=== PATIENT | female | born 1995 | race Caucasian/White ===

== ENCOUNTER 2018-02-18 20:05 | Outpatient (CLI) | payer BC, OTHER, SELFPAY ==
[2018-02-18 20:49] LABS: Bacteria 0 SEEN /hpf (None Seen); Mucous, Urine 0 SEEN /hpf (<or=2+); Red Blood Cells-Urine 0 SEEN /hpf (0-5)
[2018-02-18 21:00] VITALS: BMI 28.8
[2018-02-18 21:10] LABS: ROM Internal Control Test YES-OK TO RESULT pt. (Internal QC); ROM Patient Test Negative (Negative)
[2018-02-18 21:19] LABS: Color, Urine Yellow (Yellow); Glucose, Dipstick Normal (Normal); Ketone-Dipstick Negative (Negative); Leukocyte Esterase-Dipstick 25 /ul (Negative); Nitrite-Dipstick Negative (Negative); Occult Blood-Urine Negative /ul (Negative); Protein-Dipstick Negative (Negative); Urine Bilirubin Dipstick Negative (Negative); Urine Clarity Clear (Clear); Urine Urobilinogen Normal (Normal)
[2018-02-18 21:27] LABS: White Blood Cells 0-5 SEEN /hpf (0-5)
[2018-02-18 21:28] LABS: Squamous Epithelial Cells - UA 5-10 SEEN /hpf (5-10)
--- NOTE | 2018-02-19 04:40 | OB.TRI.HP_ITS ---
History of Present Illness Date of Service: 02/18/18 Was patient seen by the physician?: No Reason For Visit: RULE OUT LABOR Date of Service: 02/18/18 Final ANNETTA: 04/29/18 Final ANNETTA Source: US <20 weeks Gestational age: 30 Weeks and 1 Days History of Present Illness: 23yo @ 30.1 wks c/o contractions and ? LOF Allergies No Known Allergies Allergy (Verified 02/18/18 21:03) Laboratory Studies: Laboratory Tests 02/18/18 02/18/18 Range/Units 20:30 20:30 Urine Color Yellow (Yellow) Urine Clarity Clear (Clear) Urine pH 7.0 (5.0 - 8.0) Ur Specific [place] 1.010 (1.002-1.030) Urine Protein Negative (Negative) mg/dl Urine Glucose (UA) Normal (Normal) mg/dl Urine Ketones Negative (Negative) mg/dl Urine Occult Blood Negative (Negative) /ul Urine Nitrite Negative (Negative) Urine Bilirubin Negative (Negative) mg/dL Urine Urobilinogen Normal (Normal) mg/dl Ur Leukocyte Esterase 25 H (Negative) /ul Urine RBC 0 SEEN (0-5) /hpf Urine WBC 0-5 SEEN (0-5) /hpf Ur Squamous Epith Cells 5-10 SEEN (5-10) /hpf Urine Bacteria 0 SEEN (None Seen) /hpf Urine Mucus 0 SEEN (<or=2+) /hpf Vag Amniotic Fld Detect Negative (Negative) Physical Exam Presentation: Cephalic Cervix Dilation (cm): 0 Station: -3 Effacement (%): 0 NST - FHR Rate Baby A Baseline: 135 Variability:: Moderate Accelerations:: 15 x 15 Decelerations:: None NST Reactive:: Yes FHR Category:: Category I Uterine Activity:: no ctx Impression/Plan @ 30.1 wks, false labor 1) ROM plus- negative 2) UA neg 3) DC HOME
== END 2018-02-18 22:00 | disposition home or self-care (01) ==
LOC: WPOUT 20:32 → WP 21:05
PROVIDERS: Family Provider Obstetrics & Gynecology; Visit Provider Obstetrics & Gynecology
DX: O60.03 Preterm labor without delivery, third trimester (principal); Z3A.30 30 weeks gestation of pregnancy
CPT/HCPCS: 59025; 59050; 81001; 84112; 99218; G0378

== ENCOUNTER 2018-03-20 23:12 | Outpatient (CLI) | payer OTHER, SELFPAY ==
[2018-03-20 23:47] VITALS: BMI 29.5
[2018-03-21 00:28] LABS: ROM Internal Control Test YES-OK TO RESULT pt. (Internal QC); ROM Patient Test Negative (Negative); Record Kit Lot#, ROM+ J7836
[2018-03-21 00:55] VITALS: RESP 18
--- NOTE | 2018-03-24 10:17 | OB.TRI.PN_ITS ---
Progress Notes Date of Service: 03/20/18 Progress Note: Presented to L&D at 34w3d for rule out ROM. Patient at home and felt large gush of fluid. Denies any contractions, vaginal bleeding, or other concerns. O:140 moderate variability, accels, no decels, Category 1 FHT TOCO: Uterine irritability ROM Plus negative A: False Labor P: 1) labor precautions given 2) Membranes intact, D/C home. notified. Laboratory Studies: Laboratory Tests 3 03/21/18 Range/Units 00:00 Vag Amniotic Fld Detect Negative (Negative)
== END 2018-03-21 00:55 | disposition home or self-care (01) ==
LOC: WPOUT 23:37 → WP 23:37
PROVIDERS: Family Provider Obstetrics & Gynecology; Visit Provider Obstetrics & Gynecology
DX: O47.03 False labor before 37 completed weeks of gestation, third trimester (principal); Z3A.34 34 weeks gestation of pregnancy
CPT/HCPCS: 59025; 59050; 84112; 99218; G0378

== ENCOUNTER 2018-03-23 21:21 | Outpatient (CLI) | payer OTHER, BC, SELFPAY ==
[2018-03-23 21:40] VITALS: BMI 29.8
[2018-03-23 22:01] LABS: ROM Internal Control Test YES-OK TO RESULT pt. (Internal QC); Record Kit Lot#, ROM+ J7836
[2018-03-23 22:32] LABS: ROM Patient Test Negative (Negative)
--- NOTE | 2018-03-24 07:23 | OB.TRI.NOTE ---
- Problem List (1) Vaginal discharge during Status: Acute (2) Uterine contractions during Status: Acute (3) Decreased movement Status: Acute History of Present Illness Date of Service: 03/23/18 Was patient seen by the physician?: No Reason For Visit: R/O Date of Service: 03/23/18 Final ANNETTA: 04/29/18 Final ANNETTA Source: US <20 weeks Gestational age: 34 Weeks and 6 Days History of Present Illness: Patient called in stating she was leaking fluid, having ctx's q 4 min, and having DFM. No VB. Allergies No Known Allergies Allergy (Verified 03/23/18 22:11) Laboratory Studies: Laboratory Tests 03/23/18 Range/Units 21:40 Vag Amniotic Fld Detect Negative (Negative) NST - FHR Rate Baby A NST Reactive:: Yes FHR Category:: Category I Impression/Plan - Cvx c/t/h per RN and no regular ctx's on toco - Not ruptured - NST reactive and reassuring - D/c home
== END 2018-03-23 22:40 | disposition home or self-care (01) ==
LOC: WPOUT 21:50 → WP 21:51
PROVIDERS: Referring Provider Obstetrics & Gynecology; Visit Provider Obstetrics & Gynecology
DX: Z03.71 Encounter for suspected problem with amniotic cavity and membrane ruled out (principal); O36.8130 Decreased fetal movements, third trimester, not applicable or unspecified; O62.9 Abnormality of forces of labor, unspecified; Z3A.34 34 weeks gestation of pregnancy
CPT/HCPCS: 59025; 59050; 84112; 99218; G0378

== ENCOUNTER 2018-04-02 23:30 | Outpatient (CLI) | payer OTHER, BC, SELFPAY ==
[2018-04-02 23:57] VITALS: BMI 30.5
[2018-04-03 00:32] LABS: ROM Internal Control Test YES-OK TO RESULT pt. (Internal QC); ROM Patient Test Negative (Negative); Record Kit Lot#, ROM+ J7836
--- NOTE | 2018-04-03 01:07 | OB.TRI.NOTE ---
- Problem List (1) History of depression Status: Acute (2) Headache Status: Acute (3) Blurred vision Status: Acute (4) Nausea Status: Acute (5) Diarrhea Status: Acute (6) Vaginal discharge during Status: Acute (7) Uterine contractions during Status: Acute (8) Decreased movement Status: Acute History of Present Illness Date of Service: 04/03/18 Was patient seen by the physician?: Yes Reason For Visit: R/O LABOR Date of Service: 04/03/18 Final ANNETTA: 04/29/18 Final ANNETTA Source: US <20 weeks Gestational age: 36 Weeks and 2 Days History of Present Illness: Patient is a 23-year-old at 36 weeks gestational age who presents to triage with multiple complaints. She called overnight complaining of new onset diarrhea. She now states she is having a headache, blurred vision, leaking of fluid, contractions, decreased movement, swelling, nausea, occasionally cannot catch her breath. She states all the symptoms started at the same time last night. Her headache is frontal and throbbing and feels like a migraine for her. Her vision is blurred and she also describes spots of light in her vision. She also notes nausea and diarrhea. He denies shortness of breath but says at random times she feels she cannot catch her breath, and she notes a history of asthma but denies any wheezing or coughing. She states she is not having chest pain currently but she did have an episode of pressure that resolved. She feels she has been wet but has had no large gush or leaking of fluid. She states she has been feeling contractions that are mild and not painful for her. She has had decreased movement today. Allergies No Known Allergies Allergy (Verified 04/02/18 23:59) Laboratory Studies: Laboratory Tests 04/02/18 Range/Units 23:30 Vag Amniotic Fld Detect Negative (Negative) Review of Systems Eyes: Reports: Blurred vision HEENT: Reports: Head Aches Cardiovascular: Reports: Chest Pressure - Now resolved Respiratory: Denies: Cough, Shortness of Breath, Wheezing Gastrointestinal: Reports: Diarrhea, Nausea. Denies: Abdominal Pain, Vomiting Gynecological: Reports: Vaginal discharge, - - +Ctx's. DFM Physical Exam General: Alert, No apparent distress, - - Patient is well appearing Cardiovascular: Regular rate, Tachycardic Lungs: Normal air movement, - - No increased resp effort Abdomen: Soft, Non Tender, Gravid Extremities:: No edema Neurological: Deep Tendon Reflexes 2+/4 and Symmetrical, Neuro grossly intact Cervix Dilation (cm): 1 - per RN NST - FHR Rate Baby A NST Reactive:: Yes FHR Category:: Category I Impression/Plan at 36 wks presenting to triage with diarrhea, nausea, BROWNING, vision changes, DFM, LOF, ctx's. - Diarrhea and nausea: No emesis. Tolerating PO. Encouraged hydration and bland foods. Tachycardia likely secondary to dehydration given diarrhea overnight - R/o pre-e: Will give Tylenol 1000mg for BROWNING. BP normal. Will send pre-e labs and p/c ratio. No upper abdominal tenderness. Normal reflexes - DFM: NST reactive and reassuring - LOF: Not ruptured - Ctx's: Cvx 1/t/h per RN, will recheck once labs return - Tachycardia: Saturating at 100% on RA. Likely from dehydration but patient states she had a chest pressure that is now resolved. Will get EKG - If labs and EKG wnl, ok for d/c home with f/u in the office
[2018-04-03] MEDS: Acetaminophen 500 MG Tablet 1000 MG PO (01:12)
--- NOTE | 2018-04-03 01:20 | EKG12_ITS ---
Test Reason : SOB Blood Pressure : / mmHG Vent. Rate : 117 BPM Atrial Rate : 117 BPM P-R Int : 134 ms QRS Dur : 072 ms QT Int : 308 ms P-R-T Axes : 025 048 009 degrees QTc Int : 429 ms Sinus tachycardia Otherwise normal ECG No previous ECGs available Confirmed by MARIA FERNANDA DOUGLAS, MARLEN ([id number]), primer expeditor and drier MARTHA SEGAL ([id number]) on 04/07/2018 5:26:30 PM Referred By: Florence Christian Confirmed By:MARLEN IRVING MD
[2018-04-03 01:29] LABS: Hematocrit 30.6 % (37-47); Hemoglobin 10.2 g/dl (12.0-15.0); Mean Corp Hgb Conc 33.3 g/gl (32-36); Mean Corpuscular Hgb 28.4 pg (27.0-32.0); Mean Corpuscular Volume 85.2 fL (81-99); Mean Platelet Vol. 9.4 fl (6.2-12.0); Platelet Count 175 K/mm3 (150-450); RBC Distribution Width CV 13.6 % (11.6-14.6); RBC Distribution Width SD 42.6 fl (35.1-43.9); Red Blood Count 3.59 M/mm3 (4.2-5.4); Scan Indicated on CBC? Y/N NO
[2018-04-03 01:36] LABS: Partial Thromboplast Time 29.3 Seconds (24.1-36.2); Prothrombin Time (Protime)PT. 13.1 SECONDS (11.7-14.9)
[2018-04-03 01:43] LABS: AST(SGOT) 15 U/L (15-37); Alanine Aminotransfer ALT/SGPT 12 U/L (13-56); EST Glomerular Filtration Rate 162 mL/min (>60); Est Glom Filt Rate - Afr Amer 196 mL/min (>60); Estimated Creatinine Clearance 139.58 ml/min; Uric Acid 4.5 mg/dL (2.6-6.0)
[2018-04-03 01:46] LABS: Protein, Urine (Random) < 6.0 mg/dL (<11.9)
== END 2018-04-03 02:00 | disposition home or self-care (01) ==
LOC: WPOUT 23:55 → OBT 23:56
PROVIDERS: Referring Provider Obstetrics & Gynecology; Visit Provider Obstetrics & Gynecology
DX: O26.893 Other specified pregnancy related conditions, third trimester (principal); R19.7 Diarrhea, unspecified; R11.0 Nausea; R51 Headache; H53.9 Unspecified visual disturbance; E86.0 Dehydration; O99.513 Diseases of the respiratory system complicating pregnancy, third trimester; J45.909 Unspecified asthma, uncomplicated; Z3A.36 36 weeks gestation of pregnancy
CPT/HCPCS: 36415; 59025; 59050; 82565; 82570; 84112; 84156; 84450; 84460; 84550; 85027; 85610; 85730; 93005; 99218; G0378

== ENCOUNTER 2018-04-22 16:00 | Inpatient (IN) | payer OTHER, BC, SELFPAY ==
[2018-04-22] MEDS: 0.9% Saline Lock 10 ML Syringe IV (16:20)
[2018-04-22] MEDS: 0.9% Normal Saline 100 ML IV.SOLN. INTRA-UTER (16:35)
--- NOTE | 2018-04-22 16:45 | PCM.HP.OB ---
- Problem List (1) Cholestasis during in third trimester Status: Acute History Date of Admission: 04/22/18 Final ANNETTA: 04/29/18 Final ANNETTA Source: US <20 weeks Gestational age: 39 Weeks and 0 Days History of this : This is a 23 year-old, G [], P [], at weeks gestational age.2P1 @ 39 wks here for IOL due to cholestasis of . pt is currently taking ursodiol to control symptoms. Allergies No Known Allergies Allergy (Verified 04/02/18 23:59) Home Medications: Home Medications Albuterol Inhaler 1 - 2 puff INHALATION Q4H PRN PRN 02/18/18 Ferrous Sulfate 325 mg PO BID 02/18/18 Flovent Hfa 1 puff INHALATION BID PRN 02/18/18 Prenatabs FA 1 tab PO DAILY PRN 02/18/18 Ursodiol [Actigall] 300 mg PO TID 03/20/18 Hydroxyzine Pamoate [Vistaril] 25 mg PO 4X/DAY PRN PRN 04/03/18 Smoking Status: Never smoker Alcohol: None Number of Fetus(es): 1 Heart Tracin mod derian, +accels, no decels - reactive category 1 TOCO Analysis: irregular History Past Pregnancies: Past Pregnancies Delivery Date Name GA/Weeks Outcome Route Weight Gender Labor Length Anesthesia Delivery Location Provider FOB Labs: GBS neg, A+, syphilis NR, HEP B neg, HIV NR, RUB imm, GC/chlamydia neg Expected Infant Delivery Method: Spontaneous Vaginal Physical Exam General: Alert, Oriented x3 Abdomen: Soft, Non Tender, Gravid Neurological: Cranial nerves II-XII grossly intact MANAGEMENT ANALYST: Normal external genitalia Estimated gestational size: Appropriate for gestational size Presentation: Cephalic Cervix Dilation (cm): 1 Station: -3 Effacement (%): 50 Assessment/Plan All Active Problems Vaginal discharge during (Acute) Uterine contractions during (Acute) Decreased movement (Acute) History of depression (Acute) Headache (Acute) Blurred vision (Acute) Nausea (Acute) Diarrhea (Acute) Cholestasis during in third trimester (Acute) This is a 23 year-old, @ 39 wks , IOL for cholestasis of 1) admit to L&D 2) monitor FHR/TOCO 3) Anticipate 4) SINGH/cytotec ordered 5) epidural if requested for pain
[2018-04-22 16:46] LABS: Hematocrit 31.8 % (37-47); Hemoglobin 10.1 g/dl (12.0-15.0); Mean Corp Hgb Conc 31.8 g/gl (32-36); Mean Corpuscular Hgb 26.9 pg (27.0-32.0); Mean Corpuscular Volume 84.6 fL (81-99); Mean Platelet Vol. 9.8 fl (6.2-12.0); Platelet Count 205 K/mm3 (150-450); RBC Distribution Width CV 13.7 % (11.6-14.6); RBC Distribution Width SD 41.2 fl (35.1-43.9); Red Blood Count 3.76 M/mm3 (4.2-5.4); White Blood Count 8.6 K/mm3 (4.4-11.0)
--- NOTE | 2018-04-22 16:50 | HP.PCM_ITS ---
- Problem List (1) Cholestasis during in third trimester Status: Acute History Date of Admission: 04/22/18 Final ANNETTA: 04/29/18 Final ANNETTA Source: US <20 weeks Gestational age: 39 Weeks and 0 Days History of this : This is a 23 year-old, G [], P [], at weeks gestational age.2P1 @ 39 wks here for IOL due to cholestasis of . pt is currently taking ursodiol to cont rol symptoms. Allergies No Known Allergies Allergy (Verified 04/02/18 23:59) Home Medications: Home Medications Albuterol Inhaler 1 - 2 puff INHALATION Q4H PRN PRN 02/18/18 Ferrous Sulfate 325 mg PO BID 02/18/18 Flovent Hfa 1 puff INHALATION BID PRN 02/18/18 Prenatabs FA 1 tab PO DAILY PRN 02/18/18 Ursodiol [Actigall] 300 mg PO TID 03/20/18 Hydroxyzine Pamoate [Vistaril] 25 mg PO 4X/DAY PRN PRN 04/03/18 Smoking Status: Never smoker Alcohol: None Number of Fetus(es): 1 Heart Tracin mod derian, +accels, no decels - reactive category 1 TOCO Analysis: irregular History Past Pregnancies: Past Pregnancies Delivery Date Name GA/Weeks Outcome Route Weight Gender Labor Length Anesthesia Delivery Location Provider FOB Labs: GBS neg, A+, syphilis NR, HEP B neg, HIV NR, RUB imm, GC/chlamydia neg Expected Delivery Method: Spontaneous Vaginal Physical Exam General: Alert, Oriented x3 Abdomen: Soft, Non Tender, Gravid Neurological: Cranial nerves II-XII grossly intact BLADE BENDER FURNACE TENDER: Normal external genitalia Estimated gestational size: Appropriate for gestational size Presentation: Cephalic Cervix Dilation (cm): 1 Station: -3 Effacement (%): 50 Assessment/Plan All Active Problems Vaginal discharge during (Acute) Uterine contractions during (Acute) Decreased movement (Acute) History of depression (Acute) Headache (Acute) Blurred vision (Acute) Nausea (Acute) Diarrhea (Acute) Cholestasis during in third trimester (Acute) This is a 23 year-old, @ 39 wks , IOL for cholestasis of 1) admit to L&D 2) monitor FHR/TOCO 3) Anticipate 4) SINGH/cytotec ordered 5) epidural if requested for pain
[2018-04-22 16:53] VITALS: BMI 30.3
[2018-04-22 16:56] LABS: Scan Indicated on CBC? Y/N NO
[2018-04-22] MEDS: miSOPROStol 25 MCG TABLET PO (17:28)
[2018-04-22] MEDS: Lactated Ringers 1,000 ML 50 ML IV (23:46)
[2018-04-23] MEDS: Oxytocin 30 units/NS 500 ml 30 UNITS/500 ML IV.SOLN IV (01:05)
[2018-04-23] MEDS: Lactated Ringers 1,000 ML 50 ML IV ×4 (05:02→19:05)
--- NOTE | 2018-04-23 09:14 | PCM.PN.OB ---
Patient Problems: Active and Suspected Problems (Last Updated 04/22/18 @ 16:47 by Fallon Johnson MD) Cholestasis during in third trimester (Acute) Subjective: Doing well sitting up in bed. Family at bedside. Coping well with contractions, requesting Nitrous Objective: FHT 140, moderate variability, accels, no decels, Category 1 TOCO: every 2-3 minutes, moderate. Pitocin at 12mu's Cervix: 4cm/80%/-3, IBOW - Physical Exam Weight: 166 lb 0.129 oz Body Mass Index (BMI) 30.3 Intake and Output for Last 24 Hours 04/21/18 04/22/18 04/23/18 23:59 23:59 23:59 Intake Total 1735 / 1735 Output Total 2450 / 2450 Balance -715 / -715 Laboratory Tests Past 24 Hrs 04/22/18 04/22/18 16:20 16:20 WBC 8.6 RBC 3.76 L Hgb 10.1 L Hct 31.8 L MCV 84.6 MCH 26.9 L MCHC 31.8 L RDW 13.7 RDW Differential 41.2 Plt Count 205 MPV 9.8 Blood Type A POSITIVE Antibody Screen NEGATIVE Medical Necessity - Tobacco Use Smoking Status: Never smoker Assessment/Plan All Active Problems (Last Updated 04/22/18 @ 16:47 by Fallon Johnson MD) Vaginal discharge during (Acute) Uterine contractions during (Acute) Decreased movement (Acute) History of depression (Acute) Headache (Acute) Blurred vision (Acute) Nausea (Acute) Diarrhea (Acute) Cholestasis during in third trimester (Acute) A: Induction of labor, progressing, early labor Category 1 FHT P: 1) Continue with active management 2) Positional changes. Nitrous oxide for pain relief. Desires to have labor without epidural. 3) notified of patient status.
--- NOTE | 2018-04-23 12:31 | PCM.PN.OB ---
Patient Problems: Active and Suspected Problems (Last Updated 04/22/18 @ 16:47 by Fallon Johnson MD) Cholestasis during in third trimester (Acute) Subjective: Doing well, sitting up in glider, nitrous for pain relief. at bedside. Objective: FHT 135, moderate variability, accels, no decels, cateory 1 TOCO: every 2-4 minutes, moderate to palpation. Pitocin at 14mu's Cervix: 6cm/80%/-2, IBOW - Physical Exam Weight: 166 lb 0.129 oz Body Mass Index (BMI) 30.3 Intake and Output for Last 24 Hours 04/21/18 04/22/18 04/23/18 23:59 23:59 23:59 Intake Total 1865 / 1865 Output Total 3025 / 3025 Balance -1160 / -1160 Laboratory Tests Past 24 Hrs 04/22/18 04/22/18 16:20 16:20 WBC 8.6 RBC 3.76 L Hgb 10.1 L Hct 31.8 L MCV 84.6 MCH 26.9 L MCHC 31.8 L RDW 13.7 RDW Differential 41.2 Plt Count 205 MPV 9.8 Blood Type A POSITIVE Antibody Screen NEGATIVE Medical Necessity - Tobacco Use Smoking Status: Never smoker Assessment/Plan All Active Problems (Last Updated 04/22/18 @ 16:47 by Fallon Johnson MD) Vaginal discharge during (Acute) Uterine contractions during (Acute) Decreased movement (Acute) History of depression (Acute) Headache (Acute) Blurred vision (Acute) Nausea (Acute) Diarrhea (Acute) Cholestasis during in third trimester (Acute) A:Active labor, progressing Category 1 FHT P: 1) Continue with active management 2) Offered AROM, reviewed risk, benefits, and alternatives. Patient declines at this time. If no change next exam would agree to ROM. 3) nitrous oxide for pain relief, reviewed nubain as next option. 4) notified of patient status.
[2018-04-23] MEDS: Nalbuphine 10 MG/ML Ampul IV (13:27)
[2018-04-23] MEDS: fentaNYL-bupivacaine (epidural) 100 ML BAG EPIDURAL ×2 (17:23→20:51)
--- NOTE | 2018-04-23 18:28 | PCM.PN.OB ---
Patient Problems: Active and Suspected Problems (Last Updated 04/22/18 @ 16:47 by Fallon Johnson MD) Cholestasis during in third trimester (Acute) Subjective: Doing well, resting in bed. Comfortable with epidural. Family at bedside. Objective: FHT 135, moderate variability, accels, no decels category 1 TOCO: every 2-3 minutes, strong to palpation. Pitocin at 8mu's Cervix 6cm/80%-1. AROM for moderate amount of clear fluid - Physical Exam Weight: 166 lb 0.129 oz Body Mass Index (BMI) 30.3 Intake and Output for Last 24 Hours 04/21/18 04/22/18 04/23/18 23:59 23:59 23:59 Intake Total 1865 / 1865 Output Total 3925 / 3925 Balance -2059 / -2059 Laboratory Tests Past 24 Hrs 04/22/18 16:20 Blood Type A POSITIVE Antibody Screen NEGATIVE Medical Necessity - Tobacco Use Smoking Status: Never smoker Assessment/Plan All Active Problems (Last Updated 04/22/18 @ 16:47 by Fallon Johnson MD) Vaginal discharge during (Acute) Uterine contractions during (Acute) Decreased movement (Acute) History of depression (Acute) Headache (Acute) Blurred vision (Acute) Nausea (Acute) Diarrhea (Acute) Cholestasis during in third trimester (Acute) A:Active labor, protracted. Category 1 FHT P: 1) Continue with active management. 2) Epidural effective 3) AROM for clear fluid 4) notified of patient status.
--- NOTE | 2018-04-23 20:32 | PCM.PN.OB ---
Patient Problems: Active and Suspected Problems (Last Updated 04/22/18 @ 16:47 by Fallon Johnson MD) Cholestasis during in third trimester (Acute) Subjective: Resting in bed. Epidural effective. Family at bedside. Objective: FHT 140, moderate variability, accels, early decel. Category 1 TOCO: every 2-3 minutes. Pitocin at 8mu's Cervix 8cm/95%/+1 - Physical Exam Weight: 166 lb 0.129 oz Body Mass Index (BMI) 30.3 Intake and Output for Last 24 Hours 04/21/18 04/22/18 04/23/18 23:59 23:59 23:59 Intake Total 5006 / 5006 Output Total 4025 / 4025 Balance 981 / 981 Medical Necessity - Tobacco Use Smoking Status: Never smoker Assessment/Plan All Active Problems (Last Updated 04/22/18 @ 16:47 by Fallon Johnson MD) Vaginal discharge during (Acute) Uterine contractions during (Acute) Decreased movement (Acute) History of depression (Acute) Headache (Acute) Blurred vision (Acute) Nausea (Acute) Diarrhea (Acute) Cholestasis during in third trimester (Acute) A:Active labor progressing Category 1 FHT P: 1) Continue with active management. 2) Epidural effective. Positional changes 3) notified.
--- NOTE | 2018-04-23 22:37 | PLAC_PTH ---
PATIENT: ARABELLA WRAY LOC: [facility] U#:[id number] AGE/SX: 23/F ROOM: [facility]015 RE04/22/[address]: Dr. Florence Christian DO : 1995 BED: 1 DIS: 04/25/2018 SPEC #: [id number] RECD: 04/24/18 02:17 STATUS: KANDY RERuthy #: [id number] EDUARD: 04/23/18 22:[address]: Florence Christian DEPT: SURGICAL PATHOLOGY RECD BY: Matthias Grider ENTERED: 04/24/18 11:17 SP TYPE: PLACENTA OTHR DR: Dr. Johnny Bailey, Tissues: Placenta, NOS Procedures: Surgery Specimen Level V HEADER OPERATION: Vaginal delivery PRE-OP DIAGNOSIS: Maternal temp TISSUE SUBMITTED: Placenta MICROSCOPIC DIAGNOSIS Placenta: Placental disc - third trimester placenta (508 gm). Membranes - no pathologic diagnosis. Umbilical cord - three blood vessels and no pathologic diagnosis. SJ:nathalie MICROSCOPIC DESCRIPTION Slides are reviewed. GROSS DESCRIPTION SPECIMEN: PLACENTA / CLINICAL INFORMATION: A. Weight: 2.93 kg B. Gestational Age: 39 weeks C. Sex: Female PLACENTAL WEIGHT (POST FIXATION): 508 gm PLACENTAL DIMENSIONS: 16 x 15 x 3 cm PLACENTAL SHAPE: Usual ovoid PLACENTAL WEIGHT FOR GESTATIONAL AGE: Within 10-99th percentile MEMBRANES - Present A. Insertion: Marginal B. Site of rupture from edge: At edge of placental disc C. Color of membrane: Faustin-hogue D. Abnormalities: None UMBILICAL CORD - Present A. Color: [place]in-hogue B. Insertion: Eccentric C. Length: 14 cm D. Diameter: 1.2 cm E. Number of vessels: Three F. Abnormalities: None PLACENTAL DISC - Present A. Color of surface: [place]-h[place] B. surface abnormalities: None C. Maternal cotyledons: Intact with minimal tears D. Attached retro placental clot: No clot E. Cut surface: Dark red and spongy F. Lesions: None G. Separate clot: Absent SECTIONS SUBMITTED: 1. Membrane roll and umbilical cord ( end notched) 2. Placental disc, and maternal surfaces 3. Placental disc, and maternal surfaces 4. Placental disc, and maternal surfaces AM:nathalie 04/25/18 TC:4 CPT: 66611
[2018-04-23] MEDS: Oxytocin 30 units/NS 500 ml 30 UNITS/500 ML IV.SOLN 334 UNITS IV (22:39)
[2018-04-23] MEDS: Acetaminophen 325 MG Tablet PO (23:01)
[2018-04-23] MEDS: Oxytocin 30 units/NS 500 ml 30 UNITS/500 ML IV.SOLN 167 UNITS IV (23:09)
--- NOTE | 2018-04-23 23:32 | PCM.OB.VAG ---
- Problem List (1) (normal spontaneous vaginal delivery) Status: Acute (2) First degree perineal laceration during delivery Status: Acute Vaginal Delivery Maternal Presentation: Medically Indicated Induction Method of Induction: Pitocin, Ortiz Bulb, Cytotec Medical Reason for Induction: - - cholestasis Amniotic Membrane Rupture Type: Artificial Amniotic Fluid Description: Clear Final ANNETTA: 04/29/18 Final ANNETTA Source: US <20 weeks Gestational age: 39 Weeks and 1 Days Date of Procedure: 04/23/18 Pre-Operative Diagnosis: Induction of labor Post-Operative Diagnosis: Surgery/ Procedure Performed: Spontaneous Vaginal Delivery Type of Anesthesia: Epidural Description of Procedure: Progressed to complete with urge to push. Maternal fever of 100.7 and tachycardia intermittently. of viable female infant over 1st degree perineal laceration. delivered and placed on maternal abdomen, spontaneous cry, mouth and nares suctioned. APGARS 8,9. Pitocin started for active 3rd stage management. Cord clamped and cut by FOB after pulsations ceased, delayed cord clamping. Placenta delivered with maternal effort, intact, 3 vessel cord. Perineum inspected and revealed 1st degree perineal laceration. Repaired under epidural analgesia and 3.0 vicryl. Well approximated and hemostasis achieved. EBL 400ml. Fundus firm. vaginal sweep completed. Sponge and instrument count correct. Mom and baby stable. initiated. Family bonding well. Suspected Triple I, peds notified. Placenta cultured and sent to pathology. present for delivery. Presentation: Vertex Placental Delivery Description: Spontaneous Placenta Disposition: [facility] Cord Vessel Description: 3 Vessels Cord Entanglement: None Estimated Blood Loss: 400 ml A gender: Female (1 minute): 8 (5 minute): 9 Episiotomy Description: None Laceration: Perineal Extension/lac, 1st degree Medications given after delivery: IV Pitocin Complications: None
[2018-04-24 02:18] LABS: Pathology Specimen OB SEE PATHOLOGY REPORT
[2018-04-24 04:00] VITALS: BP 123/62; PULSE 127; RESP 20; TEMP 36.9
--- NOTE | 2018-04-24 04:08 | NURSING ---
0400-states she felt the last time up to br, she didnt' feel like she fully emptied her bladder.
--- NOTE | 2018-04-24 08:44 | PCM.PN.OB ---
Patient Problems: Active and Suspected Problems (Last Updated 04/22/18 @ 16:47 by Fallon Johnson MD) (normal spontaneous vaginal delivery) (Acute) First degree perineal laceration during delivery (Acute) Cholestasis during in third trimester (Acute) Subjective: Patient laying back in bed at this time, recently finished feeding session. Denies any complaints or concerns at this time. Reports no issues with or latch. reports no issues with urination or ambulation. Anticipating discharge to home tomorrow. Objective: VSS, Afebrile - see nursing notes for vitals Breasts soft, without cracks or blisters on nipples or erythema Abdomen NT x 4 quadrants, FF midline 1 FB below umbilicus +2/4 reflexes in LE, negative calf tenderness BL Scant rubra lochia, perineum well-approximated - Physical Exam General: Alert, Oriented x3, Cooperative HEENT: Atraumatic, Normocephalic Oral: Moist Mucosa Lungs: Normal air movement Cardiovascular: Regular rate, Regular Rhythm Abdomen: Soft, Non Tender, Non-Distended Extremities: No edema, Capillary Refill Less than 3 Seconds, No Calf Tenderness Skin: No rashes, No breakdown Musculoskeletal: No Tenderness to Palpation of Joints or Extremities Neurological: Cranial nerves II-XII grossly intact, Deep Tendon Reflexes 2+/4 and Symmetrical Psych/Mental Status: Normal Affect, Appropriate Vital Signs Temp Pulse Resp BP 98.5 F 127 H 20 H 123/62 H 04/24/18 04:00 04/24/18 04:00 04/24/18 04:00 04/24/18 04:00 Weight: 166 lb 0.129 oz Body Mass Index (BMI) 30.3 Intake and Output for Last 24 Hours 04/22/18 04/23/18 04/24/18 23:59 23:59 23:59 Intake Total 5006 / 5006 1137 / 1137 Output Total 4025 / 4025 750 / 750 Balance 981 / 981 387 / 387 Medical Necessity - Tobacco Use Smoking Status: Never smoker Assessment/Plan All Active Problems (Last Updated 04/22/18 @ 16:47 by Fallon Johnson MD) (normal spontaneous vaginal delivery) (Acute) First degree perineal laceration during delivery (Acute) Vaginal discharge during (Acute) Uterine contractions during (Acute) Decreased movement (Acute) History of depression (Acute) Headache (Acute) Blurred vision (Acute) Nausea (Acute) Diarrhea (Acute) Cholestasis during in third trimester (Acute) 23 y/o s/p , PPD #1 1) Continues PP orders 2) Anticipate discharge to home tomorrow Yen PEREYRA
[2018-04-24 08:50] VITALS: BP 124/60; PULSE 104; RESP 18; TEMP 37.2
[2018-04-24] MEDS: Acetaminophen 500 MG Tablet 1000 MG PO ×2 (08:56→18:15)
[2018-04-24 13:16] VITALS: BP 124/73; PULSE 95; RESP 18; TEMP 37
[2018-04-24 15:43] VITALS: BP 123/80; PULSE 96; RESP 18; TEMP 37.2
[2018-04-24 20:00] VITALS: BP 121/77; PULSE 89; RESP 18; TEMP 36.9
[2018-04-25 02:10] VITALS: BP 124/79; PULSE 90; RESP 18; TEMP 36.6
--- NOTE | 2018-04-25 07:36 | DCINST_ITS ---
Discharge Diet: No Restrictions Discharge Activity: Return to Normal Activity, May not drive while taking narcotic pain medications., May Shower May resume sexual activity in: 4-6 weeks Additional Activity Instructions:: Nothing in the vagina for 4-6 weeks. You may return to work/school in 6 weeks. Call your doctor if your incision/area has: Continuous Slow Oozing, Sudden Increased Bleeding, Increased Pain/ Swelling, Increased Redness, Foul Smelling Discharge Call your doctor if you observe: Fever of 101 or Higher, Inability to urinate, Inability to have a bowel movement, Using more than one pad per hour Additional Instructions: If you experience any of the following, contact your healthcare provider. * Bleeding that soaks a pad every hour for 2 hours * Fever 100.4 or higher * Unrelieved incision or abdominal pain * Swelling, redness, discharge or bleeding from your incision or episiotomy site * Your incision begins to separate * Problems urinating (including inability to urinate or burning while urinating). * Visual changes * Severe headache * Flu-like symptoms * Pain or redness in one of both of your breasts * Pain, warmth, tenderness or swelling in your legs, especially the calf area * Frequent nausea and vomiting * Symptoms of depression or anxiety If you experience any of the following, call 911 or go to the nearest Emergency Room. * Chest pain * Problems breathing * Seizure activity * Partial or complete paralysis of a body part, slurred speech, weakness or drooping of the face, or a sudden inability to walk or hold your balance Allergies/Adverse Reactions: Allergies No Known Allergies Allergy (Verified 04/22/18 16:56) Medications to take at Discharge Ferrous Sulfate 325 mg PO BID 02/18/18 Prenatabs FA 1 tab PO DAILY PRN 02/18/18 Ibuprofen [Motrin] 600 mg PO Q6H PRN PRN tablet 04/24/18 Please Follow Up With: Josi Roberto CNM When: Call to make an appointment with your provider in 2 and 6 weeks. Primary Care Physician: Johnny Bailey DO [Primary Care Provider] - Test Results: Test results from this visit will be discussed in further detail at your follow- up appointment, if applicable. Proposed Discharge Date: 04/25/18
--- NOTE | 2018-04-25 07:36 | PCM.PN.OB ---
Patient Problems: Active and Suspected Problems (Last Updated 04/22/18 @ 16:47 by Fallon Johnson MD) (normal spontaneous vaginal delivery) (Acute) First degree perineal laceration during delivery (Acute) Cholestasis during in third trimester (Acute) Subjective: Patient sitting up in bed reporting no issues at this time. Patient reports that baby is latching well, no issues with reported at this time. Patient denies issues with urination or ambulation, reports that vaginal bleeding has tapering down. Patient desires discharge to home today. Objective: Nipples without cracks, blisters. No erythema noted bilaterally Abdomen NT x 4 quadrants, FF midline 2FB below umbilicus +2/4 reflexes in LE, negative calf tenderness, no edema noted Perineum well-approximated, scant rubra lochia - Physical Exam General: Alert, Oriented x3, Cooperative HEENT: Atraumatic, Normocephalic Neck: Supple Lungs: Normal air movement Cardiovascular: Regular rate, No murmurs Abdomen: Soft, Non Tender Extremities: No edema, Capillary Refill Less than 3 Seconds Skin: No rashes, No breakdown Musculoskeletal: No Tenderness to Palpation of Joints or Extremities Neurological: Cranial nerves II-XII grossly intact, Deep Tendon Reflexes 2+/4 and Symmetrical Psych/Mental Status: Normal Affect, Appropriate Vital Signs Temp Pulse Resp BP 97.8 F 90 18 124/79 H 04/25/18 02:10 04/25/18 02:10 04/25/18 02:10 04/25/18 02:10 Oxygen Delivery Method Room Air Weight: 166 lb 0.129 oz Body Mass Index (BMI) 30.3 Intake and Output for Last 24 Hours 04/23/18 04/24/18 04/25/18 23:59 23:59 23:59 Intake Total 5006 / 5006 1137 / 1137 Output Total 4025 / 4025 1850 / 1850 Balance 981 / 981 -713 / -713 Medical Necessity - Tobacco Use Smoking Status: Never smoker Assessment/Plan All Active Problems (Last Updated 04/22/18 @ 16:47 by Fallon Johnson MD) (normal spontaneous vaginal delivery) (Acute) First degree perineal laceration during delivery (Acute) Vaginal discharge during (Acute) Uterine contractions during (Acute) Decreased movement (Acute) History of depression (Acute) Headache (Acute) Blurred vision (Acute) Nausea (Acute) Diarrhea (Acute) Cholestasis during in third trimester (Acute) 23 y/o now, s/p , PPD # 2, Normal Course P: 1) Discharge to home pending discharge 2) PP anticipatory health teaching reviewed 3) RTC at 2 weeks and 6 weeks PP to [facility] Yen PEREYRA
[2018-04-25 08:30] VITALS: BP 137/92; PULSE 80; RESP 16; TEMP 36.7; O2SAT 99
[2018-04-25 12:10] VITALS: BP 123/70; PULSE 76; RESP 17; TEMP 36.7; O2SAT 98
== END 2018-04-25 12:10 | disposition home or self-care (01) | DRG 805 ==
PROVIDERS: Obstetrics & Gynecology; Admitting Provider Obstetrics & Gynecology; Family Provider Student in an Organized Health Care Education/Training Program; PCP Student in an Organized Health Care Education/Training Program; Referring Provider Obstetrics & Gynecology; Visit Provider Obstetrics & Gynecology
DX: O26.62 Liver and biliary tract disorders in childbirth (principal); K83.1 Obstruction of bile duct; Z37.0 Single live birth; Z3A.39 39 weeks gestation of pregnancy; O70.0 First degree perineal laceration during delivery
CPT/HCPCS: 59025; 59050; 85027; 86850; 86900; 88307; 99218; J7120; A4216; G0378